=== PATIENT | female | born 1955 | race Caucasian/White ===

== ENCOUNTER 2022-12-26 09:22 | Emergency (ER) | payer MEDICARE, SELFPAY ==
[2022-12-26 09:24] VITALS: BP 195/71; PULSE 83; RESP 18; TEMP 36.5; O2SAT 100; BMI 24.8
--- NOTE | 2022-12-26 09:55 | ED.SKABFB ---
HPI - Skin/Abscess/Foreign Bdy General Chief complaint: Skin/Abscess/Foreign Body Stated complaint: Tick bite Time Seen by Provider: 12/26/22 09:36 Source: patient Mode of arrival: ambulatory Limitations: no limitations History of Present Illness HPI narrative: 67-year-old female previously healthy here with complaints of tick bite to the left axilla for 3 days. Patient reports she attempted to remove the tick by herself but was unable to remove the whole thing. She denies any rash, fevers, chills, headache, neck pain or neck stiffness. She is unsure how long the tick was in place for. Patient report she has a dog and [place] a lot of time in [place]. Related Data Allergies Allergy/AdvReac Type Severity Reaction Status Date / Time codeine [CODEINE] Allergy Unknown RASH Verified 12/26/22 09:27 Penicillins [PENICILLINS] Allergy Unknown RASH Verified 12/26/22 09:27 acetaminophen [From PERCOCET] AdvReac Unknown NAUSEA & Verified 12/26/22 09:27 VOMITING oxycodone [From PERCOCET] AdvReac Unknown NAUSEA & Verified 12/26/22 09:27 VOMITING Review of Systems Review of Systems: Yes all other systems are reviewed and are negative Constitutional: Constitutional: Reports no additional constitutional complaints, Denies body ache(s), Denies chills, Denies fever(s), Denies headache(s) and Denies weakness Eyes: Eyes: Reports no additional eye complaints and Denies change in vision ENT: Reports system reviewed and no additional complaints, except as documented, Denies dizziness, Denies headache(s), Denies nasal congestion, Denies nasal discharge and Denies neck pain Cardiovascular: Cardiovascular: Reports no additional cardiovascular complaints, Denies chest pain, Denies leg edema and Denies dyspnea Respiratory: Respiratory: Reports no additional respiratory complaints, Denies cough and Denies dyspnea Gastrointestinal: Gastrointestinal: Reports no additional gastrointestinal complaints, Denies abdominal pain, Denies diarrhea, Denies nausea and Denies vomiting Genitourinary: Genitourinary: Reports no additional female genitourinary complaints and Denies urinary incontinence Musculoskeletal: Musculoskeletal: Reports no additional musculoskeletal complaints, Denies back pain, Denies arthralgias, Denies joint swelling, Denies neck pain, Denies numbness and Denies tingling Integumentary/Breasts: Skin/Breast: Reports system reviewed and no additional complaints, except as docu and Denies rash Neurologic: Reports system reviewed and no additional complaints, except as documented, Denies Abnormal speech present, Denies dizziness, Denies headache(s), Denies numbness, Denies tingling and Denies weakness PMF Past Medical History Attestation statement: The following information was validated with the patient. Source: old records reviewed and nursing notes reviewed Social History Social History Advance Directives: No Advance Directives Information Provided: No Physical Exam Vital Signs: Vital Signs: Last Vital Signs Temp 97.7 F 12/26/22 09:24 Pulse 83 12/26/22 09:24 Resp 18 12/26/22 09:24 BP 195/71 H 12/26/22 09:24 Pulse Ox 100 12/26/22 09:24 O2 Del Method Room Air 12/26/22 09:24 BMI result Body Mass Index 24.8 Const: General: cooperative, healthy appearing, comfortable and no acute distress Orientation/consciousness: patient oriented x3 Limitations: no limitations HEENT: Head: Yes normal to inspection Ears: hearing grossly normal bilaterally General nose exam: Normal external nose present Face and sinus: Yes normal facial exam Mouth: Normal oral and palatal mucosa present Throat: Yes posterior oropharynx normal Eyes: General: appearance normal, both eyes and all related structures Pupils: Equal, round and reactive pupils present Neck: Neck: Yes normal visual inspection Chest: Chest palpation & inspection: normal inspection of the chest Chest/axillae images: 1. There is a 3cm area of erythema with a central area of scabbing Resp: Effort & Inspection: normal respiratory effort Auscultation: clear to auscultation bilaterally Cardio: Rate: regular rate Rhythm: regular rhythm Peripheral pulses: Peripheral pulses 2+ throughout GI: Inspection: Yes normal to inspection Palpation (GI): Soft to palpation and nontender Auscultation: normal bowel sounds Back/Spine/Pelvis: Thoracic/Lumbar Spine: thoracic and lumbar spine normal to inspection Skin: General skin exam: no rashes or lesions noted Neuro: General: patient oriented x3, no focal motor deficits and normal sensation to monofilament Cranial nerves: Yes Equal, round and reactive pupils present Cognition (Neuro): normal cognition Speech: No Abnormal speech present Gait exam (Neuro): Normal gait present Motor exam (neuro): 5/5 motor strength present throughout Extrem: General: Yes normal to inspection Medications Administered Discontinued Medications Generic Name Dose Route Start Last Admin Trade Name Robel PRN Reason Stop Dose Admin Doxycycline Monohydrate 200 mg 12/26/22 10:17 12/26/22 10:26 Doxycycline Monohydrate 100 Mg Capsule PO 12/26/22 10:18 200 mg ONCE ONE Administration Lidocaine HCl 2 ml 12/26/22 10:00 12/26/22 10:03 Lidocaine Hcl 1 % Mpf 2 Ml Vial INFILTRATI 12/26/22 10:01 2 ml ONCE ONE Administration Lidocaine HCl 2 ml 12/26/22 10:00 12/26/22 10:03 Lidocaine Hcl 1 % Mpf 2 Ml Vial INFILTRATI 12/26/22 10:01 2 ml ONCE ONE Administration Medical Decision Making Medical Decision Making MDM Narrative: 67-year-old female previously healthy here with complaints of tick bite to the left axilla for 3 days. Patient reports she attempted to remove the tick by herself but was unable to remove the whole thing. She denies any rash, fevers, chills, headache, neck pain or neck stiffness. She is unsure how long the tick was in place for. To the left axilla there is a area of erythema with a central area of scabbing. Unable to visualize the wound bed. Will de-roof the scab and explore wound bed. Give one time dose of doxy 200mg PO Differential Diagnosis Differential Diagnoses: The differential diagnosis associated with the presentation includes Tick bite no signs or symptoms concerning for tick-borne illness Admission/Observation Consideration of admission/observation: Escalation of care including admission/observation considered signs or symptoms concerning for tick-borne illness necessitating labs and or admission Tests considered The following testing was considered but not selected: signs or symptoms concerning for tick-borne illness necessitating labs Prescription Management I considered prescription management with: Antibiotic Procedures Procedure Narrative Procedure Narrative: The left axilla was cleansed with betadine 3ml of 1% lidocaine was injected around the site for analgesia The scab was de-roofed with a #15 blade There was debris removed with the scab, ?unsure if remains of tick. The wound bed was explored and cleaned with betadine and topical bacitracin and dressing were applied. Discharge Plan Discharge Clinical Impression: Tick bite with subsequent removal of tick Patient Disposition: Home, Self-Care Instructions: Tick Bite (ED) Additional Instructions: Monitor for bull's-eye rash, fevers, chills, headache, joint pain and return for the symptoms. You did receive a 1 time dose of doxycycline prophylactically for Lyme disease Referrals: Suhas Vegas MD [Primary Care Provider] - 1 week Interventions: ED Discharge Assessment Last Done: 12/26/22 10:28 Discharge Date/Time: 12/26/22 10:41
== END 2022-12-26 10:41 | disposition home or self-care (01) ==
PROVIDERS: Emergency Provider Emergency Medicine; PCP Internal Medicine
DX: S40.862A Insect bite (nonvenomous) of left upper arm, initial encounter (principal); L92.3 Foreign body granuloma of the skin and subcutaneous tissue; W57.XXXA Bitten or stung by nonvenomous insect and other nonvenomous arthropods, initial encounter; Y93.9 Activity, unspecified; Y92.9 Unspecified place or not applicable; Y99.9 Unspecified external cause status
CPT/HCPCS: 10120; 99282; 99284

== ENCOUNTER 2024-03-30 12:31 | Outpatient (AMB) | payer MEDICARE, SELFPAY ==
--- OUTSIDE RECORDS SUMMARY | 2024-03-30 12:34 | XMS_ITS | Continuity of Care Document ---
Author Organization [facility] Address [address] [place] [address]- Care Team Providers Care Senior Information Security Consultant Name Role Phone Shasta BENTLEY, Suhas Curtis Primary Care Physician Encounter [facility] Date(s): 02/23/24 - 03/24/24 [facility] [address] [place] [address]- Encounter Type: Triage Allergies, Adverse Reactions, Alerts Substance Criticality Severity Reaction Reaction Severity Status codeine nausea and vomiting Active penicillin unknown Active Percocet 5/325 N/V Activ e Immunizations Given and Recorded Vaccine Date Status Refusal Reason influenza virus vaccine, inactivated 01/05/24 Osvaldo rded influenza virus vaccine, inactivated 01/03/23 Osvaldo rded influenza virus vaccine, inactivated 12/16/21 Osvaldo rded influenza virus vaccine, inactivated 03/24/21 Gi kenny influenza virus vaccine, inactivated 12/04/18 Give n influenza virus vaccine, inactivated 04/19/18 Give n influenza virus vaccine, inactivated 01/21/17 Give n influenza virus vaccine, inactivated 02/19/13 Give n SARS-CoV-2(COVID-19)mRNA-LNP vac([id number]) 01/05/24 Recorded SARS-CoV-2(COVID-19)mRNA-LNP vac([id number]) 01/03/23 Recorded pneumococcal 20-valent conjugate vaccine 09/14/23 Given zoster vaccine, inactivated 01/03/23 Recorded [id number] bivalent booster vax 12/16/21 Recorded SARS-CoV-2 (COVID-19) mRNA-1273 vaccine 02/26/21 R ecorded SARS-CoV-2 (COVID-19) mRNA-1273 vaccine 07/16/20 R ecorded SARS-CoV-2 (COVID-19) mRNA-1273 vaccine 2 06/13/20 Recorded SARS-CoV-2 (COVID-19) mRNA-1273 vaccine 05/16/20 R ecorded pneumococcal 23-valent vaccine 12/04/18 Given pneumococcal 13-valent vaccine 04/19/18 Given tetanus/diphtheria/pertussis, acel(Tdap) 11/13/14 Given FluLaval (oldterm) 03/09/12 Given FluLaval (oldterm) 12/22/10 Given Influenza Virus Vaccine (oldterm) 01/22/08 Given tetanus-diphtheria toxoids (Td) 3 06/11/07 Given tetanus-diphtheria toxoids (Td) 01/19/97 Given Pneumococcal Vaccine (oldterm) 04/21/00 Given 1Result Comment: [facility]# [address] [phone] 2Result Comment: left deltoid lot [id number] exp 03-20-2069 [facility] 3Admin Note: historical data Medications amLODIPine 5 mg oral tablet 1 tablet, By Mouth, Daily, # 90 tablet, 3 Refills, Maintenance, 12/28/23 12:57:00 PM EDT, [id number], 161, cm, 10/17/23 13:13:00 EDT, Height, 60.2, kg, 07/12/23 7:21:00 EDT, Dry Weight Start Date: 12/28/23 Status: Ordered Quantity: 90.0 Unit: tablet Repeat number: 1 baclofen 5 mg oral tablet 1 tablet = 5 mg, By Mouth, 3 times a day, PRN Pain , Moderate, # 30 tablet, 2 Refills, Maintenance,02/09/23 9:32:00 AM EST, Tablet, [id number], Partial fill upon patient request if the prescription is for a schedule II opioid drug., 161.2, cm, 11/10/22 15:57:00 EDT, Height Start Date: 02/09/23 Status: Ordered Quantity: 30.0 Unit: tablet Repeat number: 3 betamethasone topical dipropionate 0.05% cream 1 application, Topically, Daily, # 15 Gm, 0 Refills, Maintenance, 06/28/23 12:21:00 PM EDT, Cream, Partial fill upon patient request if the prescription is for a schedule II opioid drug. Start Date: 06/28/23 Status: Ordered Quantity: 15.0 Unit: g Repeat number: 1 Colace sodium 100 mg oral capsule 100 mg, 1, capsule, By Mouth, 2 times a day, PRN, Refills 0, Maintenance, as needed for constipation, 07/14/23 8:00:00 AM EDT, Partial fill upon patient request if the prescription is for a schedule II opioid drug. Start Date: 07/14/23 Status: Ordered Repeat number: 1 FLUoxetine 20 mg oral capsule 1, capsule, By Mouth, Daily, # 90 capsule, Refills 3, Maintenance, 12/28/23 12:57:00 PM EDT, Route to Pharmacy Electronically, [id number], 161, cm, 10/17/23 13:13:00 EDT, Height, 60.2, kg, 07/12/23 7:21:00 EDT, Dry Weight Start Date: 12/28/23 Status: Ordered Quantity: 90.0 Unit: capsule Repeat number: 1 Freestyle Lite Lancets See Instructions, # 100 each, Refills 11, Tot. Refills 11, Maintenance, Dm2 E11.9 check blood sugaronce a day, 09/14/23 12:27:00 PM EDT, Supply, 161, cm, 07/14/23 13:01:00 EDT, Height, 60.2, kg, 07/12/23 7:21:00 EDT, Dry Weight Start Date: 09/14/23 Status: Ordered Quantity: 100.0 Unit: each Repeat number: 12 Freestyle Lite Monitor See Instructions, # 1 each, Maintenance, Dm2 E11.9 check blood sugar once a day, 09/14/23 12:26:00 PM EDT, Supply, 161, cm, 07/14/23 13:01:00 EDT, Height, 60.2, kg, 07/12/23 7:21:00 EDT, Dry Weight Start Date: 09/14/23 Status: Ordered Quantity: 1.0 Unit: each Repeat number: 1 Freestyle Lite Test Strips See Instructions, # 100 each, Refills 11, Tot. Refills 11, Maintenance, Dm2 E11.9 check blood sugaronce a day, 09/14/23 12:26:00 PM EDT, Supply, 161, cm, 07/14/23 13:01:00 EDT, Height, 60.2, kg, 07/12/23 7:21:00 EDT, Dry Weight Start Date: 09/14/23 Status: Ordered Quantity: 100.0 Unit: each Repeat number: 12 lisinopril 20 mg oral tablet 1, tablet, By Mouth, Daily, # 90 tablet, Refills 3, Maintenance, 12/28/23 12:57:00 PM EDT, Route to Pharmacy Electronically, [id number], 161, cm, 10/17/23 13:13:00 EDT, Height, 60.2, kg, :21:00 EDT, Dry Weight Start Date: 12/28/23 Status: Ordered Quantity: 90.0 Unit: tablet Repeat number: 1 metFORMIN 1000 mg oral tablet 1 tablet, By Mouth, 2 times a day, # 180 tablet, 3 Refills, 03/02/23 9:31:00 AM EST, [id number], 161.2, cm, 11/10/22 15:57:00 EDT, Height Start Date: 03/02/23 Status: Ordered Quantity: 180.0 Unit: tablet Repeat number: 4 nortriptyline 50 mg oral capsule 1, capsule, By Mouth, Daily, # 90 capsule, Refills 3, Maintenance, 02/23/23 12:51:00 PM EST, Route to Pharmacy Electronically, [id number], 161.2, cm, 11/10/22 15:57:00 EDT, Height Start Date: 02/23/23 Status: Ordered Quantity: 90.0 Unit: capsule Repeat number: 1 rosuvastatin 40 mg oral tablet 1 tablet, By Mouth, Daily, # 90 tablet, 3 Refills, Maintenance, 12/28/23 12:57:00 PM EDT, [id number], 161, cm, 10/17/23 13:13:00 EDT, Height, 60.2, kg, 07/12/23 7:21:00 EDT, Dry Weight Start Date: 12/28/23 Status: Ordered Quantity: 90.0 Unit: tablet Repeat number: 1 Tylenol 325 mg oral tablet 975 mg, By Mouth, Every 8 hours, may take OTC not to exceed 3000 mg/day, Refills 0, Maintenance, 07/14/23 8:00:00 AM EDT, Partial fill upon patient request if the prescription is for a schedule II opioid drug. Start Date: 07/14/23 Status: Ordered Repeat number: 1 valACYclovir 500 mg oral tablet 500 mg, 1, tablet, By Mouth, Daily, Refills 0, Maintenance, 09/14/23 9:28:00 AM EDT, Partial fill upon patient request if the prescription is for a schedule II opioid drug. 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 Family history of colon cancer 3, 4 Confirmed Active Gastroesophageal reflux disease with hiatal hernia Confirmed Active Genital herpes Confirmed Active H/O tubal ligation Confirmed Active H/O: hysterectomy Confirmed Active Bilateral hand pain Confirmed Active History of CEA (carotid endarterectomy) Confirmed Active HTN (hypertension) Confirmed Active Hypercholesterolemia Confirmed Active Lacunar infarction Confirmed Active Low back pain Confirmed Active Microcalcification of left breast on mammogram Confirmed Active Depression, major, single episode, moderate Confirmed Active Neck pain Confirmed Active Osteoarthritis of both hands Confirmed Active Radial scar of left breast Confirmed Active 1ct chest 2008 no change nodule thus no need f/u 2lung nodule by ct 09/22 3Colonoscopy 2013 normal except for non-precancerous polyp, repeat 2023. 4colo 04 normal, repeat 09 needed Social History Social History Type Response Smoking Status Never smoker entered on: 07/21/15 Sex Sex Representation Female (finding) Implantable Device List Procedure Provider Procedure Date Device Type Site Discectomy and Fusion Anterior Cervical Aquiles Stinson MD 07/12/23 Unknown Cervical Spine Device Identifier Serial Number Lot or Batch Number Manufacturing Date Expiration Date Distinct Identification Code MRI Safety Implantable Status Assigning Authority Unknown [id number] Unknown 10/16/23 Unknown Unknown Active Unkn own Procedure Provider Procedure Date Device Type Site Discectomy and Fusion Anterior Cervical Aquiles Stinson MD 07/12/23 Unknown Cervical Spine Device Identifier Serial Number Lot or Batch Number Manufacturing Date Expiration Date Distinct Identification Code MRI Safety Implantable Status Assigning Authority Unknown [id number] Unknown Unknown 01/15/25 Unknown Unknown Active Unknown Patient Care team information Care Team Personnel Name: Radha Moreau RN Position: [facility] [place] Office Staff Member Role: Primary Care Nurse Name: Suhas Vegas MD Position: [facility] Physician - Primary Care Member Role: PCP Address: [address] [place] [id number] Telecom: Name: Deb Nash RN Position: [facility] RN Member Role: Primary Care Nurse Name: Kacie Guzman LPN Position: [facility] RN Member Role: Primary Care Nurse Care Team Related Persons Name: HERMANN CAREY Name: NORBERT HOPPER Name: LAMIN DOWNS Insurance Providers Guarantor name: AC HOPPER Health Plan Information #: 1 Payer: MEDICARE PART B OUTPT Member Number: NA Policy Number: NA Group Number: NA Health Plan Information #: 2 Payer: MEDEX Member Number: NA Policy Number: NA Group Number: NA
--- NOTE | 2024-03-30 12:39 | MHC.OFFWIV ---
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 Patient Tobacco Use Status: Never used Tobacco Allergies codeine [CODEINE] Allergy (Unknown, Verified 03/30/24 12:50) RASH Penicillins [PENICILLINS] Allergy (Unknown, Verified 03/30/24 12:50) RASH acetaminophen [From PERCOCET] Adverse Reaction (Unknown, Verified 03/30/24 12:50) NAUSEA & VOMITING oxycodone [From PERCOCET] Adverse Reaction (Unknown, Verified 03/30/24 12:50) NAUSEA & VOMITING Do you need a note to return to daycare/school/sports/work: No HPI HPI Comments History of Present Illness Details History of Present Illness - The patient is a 69-year-old female presenting with a superficial laceration on her right pointer finger. - Injury sustained this morning around 6:30 a.m while opening a can of dog food., treated by rinsing with warm water, application of hydrogen peroxide and salve, followed by bandaging. - Bleeding stopped post self-treatment; no history of anticoagulant use. - Tetanus prophylaxis updated today during a primary care appointment. Physical Exam General: Cooperative, healthy appearing, comfortable, no acute distress and well developed Orientation: Patient oriented x3 Limitations: No limitations Head: Normal to inspection Ears: Hearing grossly normal bilaterally Nose: Normal external nose present Face and sinus: Normal facial exam Eyes: Appearance normal, both eyes and all related structures Neck: Normal visual inspection and Yes full ROM Respiratory: Normal respiratory effort and able to speak in complete sentences. Skin: No rashes or lesions noted Neuro: Patient oriented x3 Extremities: right 2nd digit has superficial 1cm linear laceration to palmar aspect of PIP, no drainage, no bleeding, no erythema or signs of infection noted. [facility] Social History Patient Tobacco Use Status: Never used Tobacco Review of Systems Const All systems reviewed & are unremarkable except as noted in HPI and below Physical Exam Vital Signs: Last Vital Signs Pulse 106 H 03/30/24 12:40 BP 118/72 03/30/24 12:40 Pulse Ox 98 03/30/24 12:40 Oxygen Delivery Method Room Air 03/30/24 12:40 Office Procedures Laceration Repair Procedure Location: cleaned wound with iodine, applied 2 steri-strips Text: After discussion of risk and benefits, verbal informed consent was obtained. The area was cleaned, prepped, and draped using sterile technique. The wound was debrided of any foreign material or devitalized tissue. Wound edges were approximated and closed using 2 steri strips Standard wound dressing was applied. Wound care instructions were given [X]. The patient tolerated the procedure well. The patient was instructed to return for increased redness or red streaking, pain, swelling, pus, fevers, chills, or any other signs or symptoms of infection or worsening. DAC Assessment & Plan Assessment & Plan (1) Laceration of finger of right hand: Code(s): S61.219A - Laceration without foreign body of unspecified finger without damage to nail, initial encounter Qualifiers: Encounter type: initial encounter Finger: index finger Damage to nail status: without damage Foreign body presence: without foreign body Qualified Code(s): S61.210A - Laceration without foreign body of right index finger without damage to nail, initial encounter Plan: Wound cleaned, 2 steri-strips applied and covered with gauze. Wound care instructions given. Tetantus given earlier today by PCP per pt. Patient was informed and verbally consented to the use of an ambient scribe for clinic note documentation during this visit. Orders: Orders AMB Laceration Repair Today S61.210A - Laceration without foreign body of right index finger without damage to nail, initial encounter Coding Level of Care Code New Pt Level 4 (54766) Diagnoses Laceration of right index finger without foreign body without damage to nail, initial encounter S61.210A Encounter type: initial encounter Finger: index finger Damage to nail status: without damage Foreign body presence: without foreign body
[2024-03-30 12:40] VITALS: BP 118/72; PULSE 106; O2SAT 98
== END 2024-03-30 14:44 | disposition home or self-care (01) ==
PROVIDERS: PCP Internal Medicine; Visit Provider Physician Assistant
DX: S61.210A Laceration without foreign body of right index finger without damage to nail, initial encounter (principal)

== ENCOUNTER → 2024-03-30 12:31 | Outpatient (BNVA) | payer MEDICARE, SELFPAY | PROVIDERS: PCP Internal Medicine; Visit Provider Physician Assistant | DX: S61.210A Laceration without foreign body of right index finger without damage to nail, initial encounter (principal); W26.8XXA Contact with other sharp object(s), not elsewhere classified, initial encounter; Y93.9 Activity, unspecified; Y92.9 Unspecified place or not applicable; Y99.9 Unspecified external cause status | CPT/HCPCS: 97597; 99202 ==

== ENCOUNTER 2025-01-03 07:22 | Outpatient (AMB) | payer MEDICARE, SELFPAY ==
--- NOTE | 2025-01-03 07:23 | AM.OFFWIN_ITS ---
Intake Vital Signs 3 01/03/25 07:25 Height 5 ft 3 in Weight 112 lb BMI 19.8 BP 120/82 Blood Pressure Location Rt brachial Position Sitting Respiration 16 Pulse 89 Pulse Source Pulse Oximeter Temp 97.9 F Temp Source Oral Pulse Oximetry (%) 100 Oxygen Delivery Method Room Air Intake Visit Reasons: ep bit by a tick Intake Note: Pt is here today c/o tick bite Lt upper inner arm: Noticed 2 days ago Patient Tobacco Use Status: Never used Tobacco Allergies codeine (CODEINE) Allergy (Unknown, Verified 01/03/25 07:23) RASH Penicillins (PENICILLINS) Allergy (Unknown, Verified 01/03/25 07:23) RASH acetaminophen (From PERCOCET) Adverse Reaction (Unknown, Verified 01/03/25 07:23) NAUSEA & VOMITING oxycodone (From PERCOCET) Adverse Reaction (Unknown, Verified 01/03/25 07:23) NAUSEA & VOMITING HPI HPI Comments 2 History of Present Illness0 Details 69 y/o Female patient who [facility] with c/o Tick Bite left Upper Arm (Bicep region). She noticed the Tick 2 days ago - she did remove the whole Tick with no difficulty. Denies Fevers, chills, Nausea, vomiting, Headaches, Neck stiffiness, body aches and Generalized Malaise. [facility] Medical History (Updated 01/03/25 @ 07:36 by Charley Santso NP) Tick bite Social History Patient Tobacco Use Status: Never used Tobacco Review of Systems Const All systems reviewed & are unremarkable except as noted in HPI and below Physical Exam Vital Signs: Last Vital Signs Temp 97.9 F 01/03/25 07:25 Pulse 89 01/03/25 07:25 Resp 16 01/03/25 07:25 BP 120/82 01/03/25 07:25 Pulse Ox 100 01/03/25 07:25 Oxygen Delivery Method Room Air 01/03/25 07:25 BMI result Body Mass Index 19.8 Const General: no acute distress Nutritional Appearance: well nourished Orientation/consciousness: patient oriented x3 Chest Chest/axillae images: 2 1. There is a 1.5 cm area of erythema with a central area of scabbing Resp Effort & Inspection: normal respiratory effort Cardio Rhythm: regular rhythm Neuro General: patient oriented x3, gait normal and moves all extremities Psych Speech and movement: Normal speech and movement present Assessment & Plan Assessment & Plan (1) Tick bite: Code(s): W57.XXXA - Bitten or stung by nonvenomous insect and other nonvenomous arthropods, initial encounter Qualifiers: Encounter type: initial encounter Laterality: left Site of tick bite: upper arm Qualified Code(s): S40.862A - Insect bite (nonvenomous) of left upper arm, initial encounter; W57.XXXA - Bitten or stung by nonvenomous insect and other nonvenomous arthropods, initial encounter Plan: There is a 1.5 cm area of erythema with a central area of scabbing. Ordered 1 dose of Doxy 200 mg for Proph RTC if Develops Rash, Fevers, chills or body aches. Medications: New 2 doxycycline hyclate 100 mg PO BID 2 caps 0RF W57.XXXA - Bitten or stung by nonvenomous insect and other nonvenomous arthropods, initial encounter Coding Level of Care Code Est Pt Level 4 (63655) Diagnoses Tick bite of left upper arm, initial encounter S40.862A; W57.XXXA Encounter type: initial encounter Laterality: left Site of tick bite: upper arm Time Spent (min) 20
--- OUTSIDE RECORDS SUMMARY | 2025-01-03 07:24 | XMS_ITS | Data Portability ---
Author Organization MIGUEL ANGEL - Nicolas Nick Ohkirsten [facility], [facility] Address [address] [place] [address] Care Team Providers Care Foam Fabricator Name Role Phone IDA REYNA Primary Care Provider Assessment No assessment recorded. Plan of Treatment Reminders Order Date Submit Date Provider Last Modified By Organization Details Last Modified Time Details Appointments None recorded. Lab None recorded. Referral physical therapist referral - DX: Lumbar radiculopat hy lumbar/core pelvic stabilizati on 2024 025 [email or web address] [facility] - [place] - [facility] , [address] [facility] , [address], [place], [address], 5 08:18:45 Procedures None recorded. Surgeries None recorded. Imaging XR, finger(s), 2 or more view - RM 113 2V R TMJ 2024 025 [email or web address] [facility], [address], [facility] [address], [place], [address], 5 11:44:00 XR, lumbar spine, 2 view - rm 306 2v l-spine 2024 025 [email or web address] [facility], [address], [address], [place], [address], 5 10:40:06 MRI, lumbar spine, w/o contrast - eval compression fx 2024 025 [facility] ([facility]), [address], [place], [address], 5 10:40:07 barium swallow study - BARRIUM SWALLOW TEST EVAL FOR DIFFICULTY SWALLOWING 2023 024 [facility], [address], [address], [place], [address], 4 20:59:46 XR, cervical spine, 2 or 3 view - rm 306 2 views of C-spine. 2023 024 [facility], [address], [address], [place], [address], 4 20:59:46 Medication Orders cyclobenzap rine 5 mg tablet [address]/Pharmacy #[id number], [address] [place], [address], 5 11:16:09 tramadol 50 mg tablet 2024 025 [facility]/Pharmacy #[id number], [address] [place], [address], 5 14:04:25 cyclobenzap rine 5 mg tablet 2023 024 [facility]/Pharmacy #[id number], [address] [place], [address], 4 12:54:45 Patient TargetsNo targets recorded. Patient InstructionsNo instructions recorded. Reason for Referral Physical Therapist Referral for Lumbar radiculopathy DX: Lumbar radiculopathy lumbar/core pelvic stabilization Referring Physician: Oscar Hansen, Orthopedic Surgery, Encounter Date: 07/16/2024 Results Created Date Observation Date Name Description Value Unit Range Abnormal Flag Note LastModifiedBy Organization Detail LastModifiedTime 01/04/20 24 01/04/2024 XR, cervi devin spine , 2 or 3 view http:/ [email or web address] ?Encry pted=s hAaTro YD8dLq bEUv6g %2BXZw aYqtaq 0bqfl% 2Fg9IQ a4ajBk vP9nXo QUaueC m3YtLR FvZlgJ JJ8[place] HZtai3 3t2061 AC0Kqa 3qFVKq iKiQtr MwF INTERFACE [facility] [address] [facility] [address], [place], [address], 01/04/2024 09:31:40 01/04/20 24 01/04/2024 XR, cervi devin spine , 2 or 3 view http:/ [email or web address] ?Encry pted=s hAaTro YD8dLq bEUv6g %2BXZw aYqtaq 0bqfl% 2Fg9IQ a4ajBk vP9nXo QUaueC m3YtLR FvZl JJ8[place] HZtai3 2b7241 AC0Kqa 3qFVKq iKiQtr MwF INTERFACE [facility] [address] [facility] [address], [place], [address], 01/04/2024 09:31:42 06/27/19 25 06/26/2024 XR, lumba r spine , 2 view http:/ [email or web address] ?Encry pted=s hAaTro YD8dLq bEUv6g %2BXZw aYqtaq 0bqfl% 2Fg9IQ a4ajBk vP9nXo QUaueC m3YtLR FvZlg JJ8[place] HZtai3 6z1068 AC0KqY 36AWaK jKiQtr MwF INTERFACE [facility] [address] [facility], [place], [address], 06/26/2024 10:55:51 06/27/19 25 06/26/2024 XR, lumba r spine , 2 view http:/ [email or web address] ?Encry pted=s hAaTro YD8dLq bEUv6g %2BXZw aYqtaq 0bqfl% 2Fg9IQ a4ajBk vP9nXo QUaueC m3YtLR FvZlgJ JJ8mAn HZtai3 4m0388 AC0KqY 36AWaK jKiQtr MwF INTERFACE [facility] [address], [place], [address], 06/26/2024 10:55:53 07/05/19 25 06/30/2024 MRI, lumba r spine , w/o contr ast [facility] Access ion Number : [id number] Patien t Name: Dinah Luna Record Number : [id number] Date of : 1955 Date of Exam: 2024 Referr ing Physic javier: Oscar [facility]jias i [facility] [address] [facility], [place] [facility] [place] [address] Exam: MR Lumbar Spine (C-) CPT 21677 Room Descri ption: [facility] Pion 3T MR Lumbar Spine (C-) CPT 18649 INDICA TION: - Unspec ified injury to unspec ified level of lumbar spinal cord, initia l encoun ter, , eval compre ssion fx, Rule Out: compre ssion fx TECHNI QUE: Multip lanar, multis equenc e MRI of the lumbar spine was perfor med withou t intrav enous contra st. COMPAR CROW: None. FINDIN GS: NUMBER ING: The study assume s 5 non-ri b-bear ing lumbar type verteb ral bodies . ALIGNM ENT, VERTEB MARIA DEL CARMEN, MARROW , AND DISCS: Mild rightw hermelinda curvat ure is noted at the thorac olumba r juncti on, and levoco nvex curvat ure in the mid lumbar spine. The sagitt al plane, there is minima l retrol isthes is of T12 on L1 and L1 on L2, and grade 1 maxine listhe sis of L4 on L5 and L5 on S1 withou t spondy lolysi s. There is mild superi or endpla te concav ity of L4 on the left associ ated with a Schmor l's node, with no associ ated edema. Verteb ral body height s are preser armida. Modic 1 degene rative endpla te change s are presen t at T12-L1 . Modic 2 change s are presen t at L3-4. There is edema in the partia lly visual ized left sacrum , with probab le nondis placed T1/T2 hypoin tense curvil inear fractu re line extend ing throug h the left sacrum , sugges ting sacral insuff icienc y fractu re. No suspic ious marrow lesion s are seen. Interv ertebr al discs are diffus ed desicc ated with severe loss of disc space at T12-L1 and multil evel mild to modera te loss of disc height at the remain ing levels . CONUS: The conus is normal in signal and contou r, with border line low termin ation at L2-3. There is no fatty filum or filar mass. [employer] ior elemen ts are intact . PARASP INAL TISSUE S: There is fatty atroph y of the physical fitness trainer ior parasp inal muscul ature. Remain ing visual ized parasp inal soft tissue s are unrema rkable . DETAIL ED FINDIN GS BY LEVEL: T11-T1 2: Mild broad- based disc osteop hyte comple x and mild facet spurri ng. No signif icant centra l stenos is or neural forami nal narrow ing. T12-L1 : Broad- based disc osteop hyte comple x, slight ly eccent zoie to the left, with no signif icant centra l stenos is or neural forami nal narrow ing. L1-L2: Minima l physical fitness trainer ior disc osteop hyte comple x with shallo w left parace ntral protru devonte and mild facet spurri ng, with no signif icant centra l stenos is or neural forami nal narrow ing. L2-L3: Broad- based disc osteop hyte comple x with right greate r than left facet hypert rophy. Minima l narrow ing of the right subart icular recess but no nerve root compre ssion. Otherw ise no signif icant centra l stenos is. Minima l right and no left neural forami nal narrow ing. L3-L4: Broad- based disc osteop hyte comple x with bilate ral facet hypert rophy and ligame ntum flavum infold ing, greate r right. Minima l narrow ing of the right subart icular recess but no nerve root compre ssion. Otherw ise no signif icant centra l stenos is. Mild to modera te right and minima l left neural forami nal narrow ing. L4-L5: Grade 1 maxine listhe sis with uncove ring of the disc and broad- based disc bulge as well as promin ent bilate ral facet hypert rophy and ligame ntum flavum infold ing. Modera te centra l stenos is. Mild bilate ral neural forami nal narrow ing. L5-S1: Mild broad- based disc bulge. Bilate ral facet hypert rophy. No signif icant centra l stenos is. Minima l right and modera te left neural forami nal narrow ing. IMPRES DEVONTE: 1. Acute to subacu te left sacral insuff icienc y fractu re with associ ated edema, partia lly visual ized. No eviden ce of acute/ subacu te lumbar fractu re. 2. Multil evel degene rative change s of the lumbar spine as detail ed by level above. Centra l stenos is is greate st at L4-5 (moder ate). Neural forami nal narrow ing is greate st on the left at L5-S1 (moder ate). A Non-Em ergent action able findin g will be commun icated to the [facility] ([place] [place]) physic javier, other respon sib provid er, or the [facility]'s office staff by the medica l record s depart ment. Receip t of this commun icatio n by the respon Radico or orderCall Loop [facility] will be docume nted in [facility] onnect Action able Findin gs. Electr onical ly Signed By: Rhonda barrera[address] [facility] ([facility]) [address], [place], [address], 07/09/2024 08:21:28 07/05/19 25 06/30/2024 MRI, lumba r spine , w/o contr ast No observ ation record ed. [facility] ([facility]) [address] [place], [address], 07/09/2024 08:21:25 10/12/19 25 10/11/2024 XR, finge r(s), 2 or more view http:/ [email or web address] ?Encry pted=s hAaTro YD8dLq bEUv6g %2BXZw aYqtaq 0bqfl% 2Fg9IQ a4ajBk vP9nXo QUaueC m3YtLR FvZlgJ JJ8mAn HZtai3 0a9959 AC0Klb nyGV6K jKiQtr MwF [facility] [address], [place], [address], 10/11/2024 09:21:48 10/12/19 25 10/11/2024 XR, finge r(s), 2 or more view http:/ [email or web address] ?Encry pted=s hAaTro YD8dLq bEUv6g %2BXZw aYqtaq 0bqfl% 2Fg9IQ a4ajBk vP9nXo QUaueC m3YtLR FvZlgJ JJ8mAn HZtai3 2b7713 AC0Klb nyGV6K jKiQtr MwF INTERFACE [facility] [address] [facility] [address], [place], [address], 10/11/2024 09:21:49 Result Notes Documentation Provider Name and Address Organization Details Recorded Time Xr, Cervical Spine, 2 Or 3 View : [email or web address] ncrypted=jeNvGfeEH2lPouBPm 6g%7CTNihPvhtj9lsxn%2Fg9IQ p7udHqoX2eAoVLmgjBz9NzLXQz WgeSTC1mVwPMydk66r6010SK8J qg9qMIMarKwTpdFmS Not Available [facility] 01/04/20[facility] 09:31:41 Xr, Cervical Spine, 2 Or 3 View : [email or web address] ncrypted=scQbVwfME3eNbhLGj 6g%4ZONiaMlpiq0cdve%2Fg9IQ v1vdYfaB0qKnHNyryFm9CjDMMm LmvISY0xHtVMbwm03b7059CM0B hv4xODQwzIiJwcLgA Not Available [facility] 01/04/2024 09:31:43 Xr, Lumbar Spine, 2 View : [email or web address] ncrypted=xbOxBzpDK3wDgqYKn 6g%3VSLliVfolb4gtdt%2Fg9IQ n6dkChiV8yWxFXvdsJj8TkLLJz XgjYEY3oDhQOzrw59c2582PN4A xA23ROuKeXwDrwUpV Not Available [facility] 06/26/2024 10:55:52 Xr, Lumbar Spine, 2 View : [email or web address] ncrypted=ueLeVvqIH7wSkaIVl 6g%6DADpsHooqr2lgeo%2Fg9IQ u1tcIfvQ1dKbPSrqaWw4LiDMGq JyuIUU3gToGMjxc45t9538YV0K lQ90ESnJpXlJqgDkB Not Available [facility] 06/26/2024 10:55:54 Mri, Lumbar Spine, W/o Contrast : [facility] Accession Number: [id number] Patient Name: Dinah Luna Date of : 1955 Date of Exam: 06-30-2024 Referring Physician: Oscar Hansen [facility] [address] [place], [place] [address] Exam: MR Lumbar Spine (C-) CPT 64172 Room Description: [facility] 3T MR Lumbar Spine (C-) CPT 54761 INDICATION: - Unspecified injury to unspecified level of lumbar spinal cord, initial encounter, , eval compression fx, Rule Out: compression fx TECHNIQUE: Multiplanar, multisequence MRI of the lumbar spine was performed without intravenous contrast. COMPARISON: None. FINDINGS: NUMBERING: The study assumes 5 qxc-lqr-mvzicrp lumbar type vertebral bodies. ALIGNMENT, VERTEBRAE, MARROW, AND DISCS: Mild rightward curvature is noted at the thoracolumbar junction, and levoconvex curvature in the mid lumbar spine. The sagittal plane, there is minimal retrolisthesis of T12 on L1 and L1 on L2, and grade 1 anterolisthesis of L4 on L5 and L5 on S1 without spondylolysis. There is mild superior endplate concavity of L4 on the left associated with a Schmorl's node, with no associated edema. Vertebral body heights are preserved. Modic 1 degenerative endplate changes are present at T12-L1. Modic 2 changes are present at L3-4. There is edema in the partially visualized left sacrum, with probable nondisplaced T1/T2 hypointense curvilinear fracture line extending through the left sacrum, suggesting sacral insufficiency fracture. No suspicious marrow lesions are seen. Intervertebral discs are diffusely desiccated with severe loss of disc space at T12-L1 and multilevel mild to moderate loss of disc height at the remaining levels. CONUS: The conus is normal in signal and contour, with borderline low termination at L2-3. There is no fatty filum or filar mass. Posterior elements are intact. PARASPINAL TISSUES: There is fatty atrophy of the posterior paraspinal musculature. Remaining visualized paraspinal soft tissues are unremarkable. DETAILED FINDINGS BY LEVEL: T11-T12: Mild broad-based disc osteophyte complex and mild facet spurring. No significant central stenosis or neural foraminal narrowing. T12-L1: Broad-based disc osteophyte complex, slightly eccentric to the left, with no significant central stenosis or neural foraminal narrowing. L1-L2: Minimal posterior disc osteophyte complex with shallow left paracentral protrusion and mild facet spurring, with no significant central stenosis or neural foraminal narrowing. L2-L3: Broad-based disc osteophyte complex with right greater than left facet hypertrophy. Minimal narrowing of the right subarticular recess but no nerve root compression. Otherwise no significant central stenosis. Minimal right and no left neural foraminal narrowing. L3-L4: Broad-based disc osteophyte complex with bilateral facet hypertrophy and ligamentum flavum infolding, greater right. Minimal narrowing of the right subarticular recess but no nerve root compression. Otherwise no significant central stenosis. Mild to moderate right and minimal left neural foraminal narrowing. L4-L5: Grade 1 anterolisthesis with uncovering of the disc and broad-based disc bulge as well as prominent bilateral facet hypertrophy and ligamentum flavum infolding. Moderate central stenosis. Mild bilateral neural foraminal narrowing. L5-S1: Mild broad-based disc bulge. Bilateral facet hypertrophy. No significant central stenosis. Minimal right and moderate left neural foraminal narrowing. IMPRESSION: 1. Acute to subacute left sacral insufficiency fracture with associated edema, partially visualized. No evidence of acute/subacute lumbar fracture. 2. Multilevel degenerative changes of the lumbar spine as detailed by level above. Central stenosis is greatest at L4-5 (moderate). Neural foraminal narrowing is greatest on the left at L5-S1 (moderate). A Non-Emergent actionable finding will be communicated to the ordering physician, other responsible provider, or the provider's office staff by the medical records department. Receipt of this communication by the responsible or ordering provider will be documented in [employer] Actionable Findings. Electronically Signed By: Asya HANSEN PA-C [address] [facility] [address], [place], [address], [facility] 07/09/2024 08:21:28 Xr, Finger(s), 2 Or More View : [email or web address] ncrypted=soXdAgpED8eOyfLKm 6g%3OAZutRaohu9stqq%2Fg9IQ k2pbJizX4nYrCQjsnFp5GnGKDn UmpBUP1dClWNfdv93u5335DB7X rivdAB3WyAnJldRjU Not Available [facility] 10/11/2024 09:21:48 Xr, Finger(s), 2 Or More View : [email or web address] ncrypted=yuLrTnbGN8tMhsQAf 6g%4SZPmnBicfz2mspq%2Fg9IQ p0jcJqzM4qLnYGtxnYe6QhBOIm AoxPTT9bZbNSajw71z1163US3M wyctHT4EqXnNwpVbP Not Available [facility] 10/11/2024 09:21:50 Problems Name Problem SNOMED Code Status Onset Date Resolution Date Notes Provider Name and Address Organization Details Recorded Time Spinal stenosis in cervical region 68517927 Active 2023 Aquiles Stinson MD [address], [place], [address], [facility] 13:12:34 Radiculopathy due to cervical spondylosis 4161713296 Active 2023 Aquiles Stinson MD [address], [facility] [place], [address], [facility] 13:12:35 Cervical disc disorder with radiculopathy 253073462 Active 2023 Aquiles Stinson MD [address], [facility] [place], [address], [facility] 13:12:36 Problem Notes None recorded. Procedures Surgical History Date Name Laterality Status Provider Name and Address Organization Details Recorded Time 10/12/19 25 JZCMC Inj completed Louise Disla PA-C [address] [facility], [place], [address], [facility] 10/11/2024 10:25:54 carotid endarterectomy completed Aquiles Stinson MD [address] [facility], [place], [address], [facility] 06/27/2023 13:09:44 Imaging Results None recorded. Procedure Notes None recorded. Medical Equipment None Reported. Allergies Allergen ID Allergen Name Allergen Category Reaction Reaction Severity Criticality Documentation Date Start Date Code Code System Note Provider Name and Address Organization Details Recorded Time 57113 Product containin g penicilli n (product) medicatio n Not available Not available Not available 05/23/20232001 30062 8001 SNOMED Aller gyRea ction : 'NO SYMPT OM SPECI FIED' ; Not Available [facility] 15:13:07 80901 acetamino phen / hydrocodo ne medicatio n Not available Not available Not available 05/23/20232005 50362 2 RxNorm Aller gyRea ction : 'Naus ea/Vo mitin g/Adelia rrhea '; Not Available [facility] 4 15:13:07 47089 acetamino phen / oxycodone medicatio n Not available Not available Not available 05/23/20232005 38117 3 RxNorm Aller gyRea ction : 'Naus ea/Vo mitin g/Adelia rrhea '; Not Available [facility] 4 15:13:07 73809 codeine medicatio n Not available Not available Not available 05/23/20232001 2670 RxNorm Aller gyNam e: 'Code ine and Relat ed'; Aller gyRea ction : 'Naus ea/Vo mitin g/Adelia rrhea '; Not Available [facility] 4 15:13:08 Medications Name Sig Start Date Stop Date Status Note LastModified by Organization Details LastModified Time celecoxib 200 mg capsule TAKE 1 CAPSULE BY MOUTH EVERY DAY FOR 30 DAYS 08/22 completed Not Available Not Available Not Available tizanidine 4 mg tablet TAKE 1 TABLET BY MOUTH EVERY 8 HOURS NEEDED FOR 5 DAYS active Not Available Not Available No t Available atenolol 100 mg tablet TAKE 1 TABLET BY MOUTH EVERY DAY active Not Available Not Available No t Available valacyclovi r 1 gram tablet TAKE 1 TABLET BY MOUTH EVERY 12 HOURS FOR 10 DAYS 08/22 completed Not Available Not Available Not Available meloxicam 15 mg tablet TAKE 1 TABLET BY MOUTH EVERY DAY active Not Available Not Available No t Available FreeStyle Lancets 28 gauge DM2 E11.9 CHECK BLOOD SUGAR ONCE A DAY active Not Available Not Available No t Available lisinopril 20 mg tablet TAKE 1 TABLET BY MOUTH EVERY DAY active Not Available Not Available No t Available ondansetron HCl 4 mg tablet TAKE 1 TABLET BY MOUTH EVERY 8 HOURS NEEDED FOR NAUSEA AND VOMITING 08/22 completed Not Available Not Available Not Available amlodipine 5 mg tablet TAKE 1 TABLET BY MOUTH EVERY DAY active Not Available Not Available No t Available valacyclovi r 500 mg tablet TAKE 1 TABLET BY MOUTH EVERY DAY active Not Available Not Available No t Available tramadol 50 mg tablet TAKE 1 TABLET EVERY 8 HOURS BY ORAL ROUTE NEEDED FOR 7 DAYS, FOR SEVERE PAIN. active Not Available Not Available No t Available pseudoephed rine-guaife nesin ER 80-700 mg tablet,exte nded release DO NOT DRIVE WHILE ON THIS MEDICATIO N 04/27 completed Statu s: 'Disc ontin ued'; Not Available Not Available Not Available metformin 1,000 mg tablet TAKE 1 TABLET BY MOUTH TWICE A DAY FOR 30 DAYS active Not Available Not Available No t Available betamethaso ne dipropionat e 0.05 % topical cream APPLY SPARINGLY TO AFFECTED AREA EVERY DAY active Not Available Not Available No t Available methylpredn isolone 4 mg tablets in a dose pack TAKE 6 TABLETS ON DAY 1 DIRECTED ON PACKAGE AND DECREASE BY 1 TAB EACH DAY FOR A TOTAL OF 6 DAYS 08/22 completed Not Available Not Available Not Available celecoxib 100 mg capsule TAKE 1 CAPSULE BY MOUTH TWICE A DAY active Not Available Not Available No t Available fluoxetine 20 mg capsule TAKE 1 CAPSULE BY MOUTH EVERY DAY active Not Available Not Available No t Available nortriptyli ne 50 mg capsule TAKE 1 CAPSULE BY MOUTH EVERY DAY active Not Available Not Available No t Available oxycodone 5 mg tablet TAKE 1 TABLET BY MOUTH EVERY 4 HOURS NEEDED FOR 14 DAYS. 08/22 completed Not Available Not Available Not Available cyclobenzap rine 5 mg tablet TAKE 1 TABLET NEEDED BY ORAL ROUTE AT BEDTIME FOR 30 DAYS, FOR MUSCLE SPASMS. active Not Available Not Available No t Available rosuvastati n 40 mg tablet TAKE 1 TABLET BY MOUTH EVERY DAY active Not Available Not Available No t Available betamethaso ne dipropionat e Betametha sone Dipropion ate 0.05% Cream 02/21 completed Statu s: 'Disc ontin ued'; Not Available Not Available Not Available FreeStyle Lite Strips DM2 E11.9 CHECK BLOOD SUGAR ONCE A DAY active Not Available Not Available No t Available FreeStyle Osage Lite kit DM2 E11.9 CHECK BLOOD SUGAR ONCE A DAY active Not Available Not Available No t Available GaviLyte-G 236 gram-22.74 gram-6.74 gram-5.86 gram oral solution PLEASE SEE ATTACHED FOR DETAILED DIRECTION S active Not Available Not Available No t Available Yuvafem 10 mcg vaginal tablet INSERT 1 TABLET VAGINALLY TWICE WEEKLY active Not Available Not Available No t Available Yuvafem Yuvafem 10MCG Tablet 02/21 completed Statu s: 'Disc ontin ued'; Not Available Not Available Not Available baclofen 5 mg tablet TAKE 1 TABLET BY MOUTH 3 TIMES A DAY NEEDED FOR MODERATE PAIN active Not Available Not Available No t Available Vitals Date Recorded Body height Body mass index (BMI) Body weight Provider Name and Address Organization Details Last Updated DateTime 06/26/2024 160.02 cm 19.7 kg/m2 35277.75 g GABRIEL LIZ [facility] 06/26/2024 10:49:01 Date Recorded Body height Body mass index (BMI) Body weight Provider Name and Address Organization Details Last Updated DateTime 07/16/2024 160.02 cm 19.7 kg/m2 00058.75 g Pauline Lopez [facility] 07/16/2024 15:05:27 Date Recorded Body height Body mass index (BMI) Body weight Provider Name and Address Organization Details Last Updated DateTime 09/13/2024 160.02 cm 19.7 kg/m2 59512.75 g Brunilda pemberton [facility] 09/13/2024 09:28:06 Date Recorded Body height Body mass index (BMI) Body weight Provider Name and Address Organization Details Last Updated DateTime 10/11/2024 160.02 cm 20.4 kg/m2 78741.12 g GABRIEL LIZ [facility] 10/11/2024 09:16:20 Date Recorded Body height Provider Name an d Address Organization Details Last Updated DateTime 01/04/2024 160.02 cm Loree Alvares, CLEANER OPERATOR [address] [facility] [address], [place], [address], [facility] 01/04/2024 09:22:15 Social History Question Answer Notes LastModified by Organizat ion Details LastModified Time Tobacco Smoking Status Never Smoker VIRY ríos, [facility] 08/23/2023 13:03:47 Have You Ever Been Counseled For Unhealthy Alcohol Use? No tereso Information not available 08/23/2023 Sex: Unknown Functional Status Question Answer Note LastModified by Organizat ion Details LastModified Time Do you use any illicit or recreational drugs? No [email or web address] Information not available 06/27/2023 Do you or have you ever used any other forms of tobacco or nicotine? No Information not available 06/27/2023 What is your level of alcohol consumption? Occasional [email or web address] Information not available 06/27/2023 Are you able to care for yourself independently? Yes [email or web address] Information not available 06/27/2023 Mental Status None recorded. Family History Nothing Reported. Medical History Condition Response Allergies/Hayfever N Coronary Artery Disease N Anxiety/Depression N Emphysema N Thyroid Problems Y COPD N Pacemaker N Anemia N Kidney/Bladder Problems N Vascular Disease N Heart Attack (NC) N Gastrointestinal Disease N Diabetes Y Autoimmune disease N Bleeding Disorder N Orthotics N Arthritis Y Seizures/Epilepsy N Blood Clot N AIDS/HIV N Congestive Heart Failure (CHF) N Acid Reflux (GERD) N Cancer N Stroke N Asthma N Peripheral Vascular Disease N Sleep Apnea N Hepatitis N Heart Disease N Rheumatoid Arthritis N Arrhythmia N Pulmonary Embolism N Fibromyalgia N Hypertension Y Osteoporosis N Gynecological HistoryNo gynecological history recorded. Obstetrics History GPAL:G 0 P 0 0 0 0 Past Encounters Encounter ID Performer Location Encounter Start Date Encounter Closed Date Diagnosis/Indication Diagnosis SNOMED-CT Code Diagnosis ICD10 Code Diagnosis IMO Codes Diagnosis Note [id number] Aquiles Stinson MD [facility] [address] [place] [address] 06/27/2023 10:52:29 07/15/2023 15:58:24 Spinal stenosis in cervical region 12937896 M48.02 68-year-ol d female with multiple levels of cervical spondylosi s (C4 to C7) and radiculopa thy. Diagnosis and treatment options were discussed. For her cervical spine she is completely miserable and has been in significan t pain for quite some time. Additional ly she has weakness. We discussed surgical interventi on which she elected for. After reviewing the patient's history, physical exam, and studies I have decided the patients chronic illness with progressio n warrants elective major surgery. The patient has completed greater than 6 weeks of physician directed nonoperati ve management of this condition to include medication s and physical therapy without improvemen t. I have further discussed the natural progressio n of this disease as well as the operative and non- operative modalities that are appropriat e for treating this disease. The known risks of surgery include infection, bleeding, damage to nerves and/or arteries, continued pain, loss of motion, spinal fluid leak, Dysphagia, dysphonia and the possible need for further surgeries. Risks of anesthesia such as nausea, vomiting, pneumonia, stroke, heart attack and . She will be scheduled for a C4 to 7 anterior cervical discectomy and fusion. She has been seen by ENT and evaluated who will assist in exposure.W earl consent was obtained. Radiculopa thy due to cervical spondylosis [id number] M47.22 Cervical d isc disorder with radiculopathy 310800851 M50.10 Pre-surger y evaluation 611447184 Z01.528 [id number] Aquiles Stinson MD [facility] [address] [place] [address] 07/22/2023 14:14:05 08/12/2023 10:46:56 Radiculopathy due to cervical spondylosis [id number] M47.22 68-year-ol d female status post 3 level anterior cervical discectomy and fusion. Incision is healing well. She will continue her collar. Vitamin D intake was encouraged . She will begin using her bone stimulator . I will refill the oxycodone for 2 more weeks. Follow-up in 4 weeks with radiograph s. [id number] Loree Alvares CNP [facility] [address] [place] [address] 08/23/2023 12:49:48 09/05/2023 16:03:54 Postoperative visit [id number] Z48.89 Cervical radiculopathy 17176892 M54.12 Cervical d isc disorder with radiculopathy 803747256 M50.10 [id number] JEIMY Coats [address] [place] [address] 10/04/2023 13:00:44 10/19/2023 13:54:25 Postoperative visit [id number] Z48.89 Cervical radiculopathy 42405194 M54.12 [id number] Loree Dia, CLEANER OPERATOR [facility] [address] [place] [address] 01/04/2024 09:10:09 01/27/2024 20:59:46 Postoperative visit [id number] Z48.89 Dysphasia 51835904 R47.0 2 [address]4790 dysphagia [id number] OSCAR HANSEN PA-C [facility] [address] [place] [address] 06/26/2024 10:40:48 07/05/2024 10:40:06 Low back pain 205202978 M54.50 [id number] Injury of lumbar spinal cord 618278967 S34.109A [id number] OSCAR HANSEN PA-C [facility] [address] [place] [address] 07/16/2024 14:54:01 07/23/2024 08:18:45 Lumbar radiculopathy 953198621 M54.16 [id number] OSCAR HANSEN PA-C [facility] [address] [place] [address] 09/13/2024 09:19:29 09/25/2024 10:06:41 Lumbar radiculopathy 678942436 M54.16 [id number] Louise Disla PA-C [facility] [address] [place] [address] 10/11/2024 09:01:56 10/23/2024 15:15:23 Pain in right thumb [id number] 021732 M79.644 [id number] Health Concerns Section Related Observation LastModified by Organization Detai ls LastModified Time None Recorded Concern Status LastModified by Organization Details LastModified Time None Recorded Advance Directives Directive None Recorded Payers Insurance Date Sequence Insurance Name Policy Number Policy Looney Covered Member ID Looney Member ID Guarantor Name 10/23/2024 2 [place] [id number] Dinah Luna [id number] Dinah Luna 10/10/2024 1 MEDICARE B-[place]: [facility] [employer] Dinah Luna [id number] 2 Dinah Luna 10/11/2024 [employer] - SPECIALITY CLAIMS (MEDICARE DME REGION A) Dinah Luna [id number] 2 Dinah Luna Notes Date Note Type Note Provider Name and Address Organization Details Recorded Time 01/04/2024 text/html I am seeing the patient today under the supervision of Dr. Stinson who was available but who did not see the patient. Surgery:anterior cervical discectomy and fusion C4-[id number] date: July 12, 2023.Surgeon:Dr. Stinson HPI:68-year-old woman presents today status post surgical intervention listed above. Overall doing well and has early resolution of pre-op neck and arm symptoms. Ordered physical therapy at last visit. Celebrex prn. still has not taken tizanidine, unsure why. Still having trouble swallowing large pieces of food, such as steak, and has to chew food for a long time to swallow. Denies trouble breathing or sensation of choking. Past family, medical, social history and review of symptoms have been reviewed, updated, and it is located in the patient's chart. MSK EXAM: examination of the cervical spineTransitions: Patient able to arise from a seated position without difficulty. No assistive device. Slightly kyphotic posture at neck. Inspection: surgical scar is healed well without evidence of infection. Cervical ROM WNL, with stiff endpoints. Bilateral upper extremities equal movement and strength 5/5. Positive sensation to touch. IMAGING:X-rays ordered, obtained, and independently reviewed at [facility] today. 2 view cervical spine reveals ACDF hardware in appropriate position without displacement or failure. Good fusion appearance. Clips from previous carotid surgery visible. IMPRESSION: 68-year-old female status post ACDF C4-C7 07/12/2023, recovering well PLAN:Findings and situation discussed with patient. She is very satisfied with her recovery and feels greatly improved. Will order swallow study to further evaluate. Explained to patient she was a 3-level fusion and could have caused irritation to esophagus. Also prescribed cyclobenzaprine for muscle spasms. Medication education reviewed. FOLLOW UP: 6 months Speech recognition operations forester software was used to create portions of this document. An attempt at proofreading has been made to minimize errors. Please call for corrections. Loree Alvares, CLEANER OPERATOR [address] [facility] [address], [place], [address], [place] - [facility] 01/04/2024 12:55:13 06/26/2024 text/html I am seeing the patient today under the supervision of Dr. Lazo who was available but who did not see the patient. HPI: Patient is a pleasant 69-year-old female who presents for evaluation of ongoing low back pain. Patient reports she had a fall last Tuesday06/20/2024. She states since this time she has had significant left-sided and central low back pain. She does endorse a history of sacroiliac joint issues in the past doing physical therapy as well as low back pain issues however this onset was acute in nature after her fall pain is about a 7 out of 10 radiates down to the left lateral thigh. Patient has been taking Celebrex and Tylenol which has not been significantly helpful for the pain at this time. TREATMENTS: As noted in HPI Past family, medical, social history and review of systems has been reviewed, updated and signed by me and is located in the patient s chart. Examination: The patient is well appearing, alert and oriented x3 and in no acute distress. Gait is antalgic. Patient is able to transition from seated to standing position with difficulty.Inspection of the spine reveals no step off, deformity or overlying skin changes or atrophy.The spine is tender along midline at the level of L4-L5 as well as left paravertebral musculature and posterior hip musculatureRange of motion of the Lumbar spine is 60% of normal.Range of motion of the hips and knees is full with discomfort noted on straight leg raise test on the left sideStrength in lower extremity myotomes 5/5 bilaterally.Sensation intact.Re e xes normal 2+at knee and ankle. No ankle clonus X-rays ordered, obtained and reviewed at [facility], 2 views of the lumbar spine shows degenerative disc disease question of L4 compression fracture with minimal loss of vertebral height. Impression/Plan: Low back pain status post fall versus L4 compression fracture at this time I would recommend moving forward with an MRI to further evaluate the low back for potential compression fracture and lumbar radiculopathy status post trauma. Patient was given a prescription for cyclobenzaprine 5 mg at bedtime as well as tramadol 50 mg as needed for severe pain. Patient will follow-up with myself in about 2 to 3 weeks for MRI review. [facility] speech recognition operations forester software was used to create portions of this document. An attempt at proofreading has been made to minimize errors. Please call for corrections. OSCAR HANSEN PA-C [address], [place], [address], [facility] - [facility] 06/26/2024 14:06:12 07/16/2024 text/html I am seeing the patient today under the supervision of Dr. George who was available but who did not see the patient. HPI: Patient is a pleasant 69-year-old female who presents for evaluation of ongoing low back pain. Patient reports she had a fall last Tuesday06/20/2024. She presents today in follow-up for MRI review. Patient states she is overall feeling somewhat better continues to have some low back pain without radicular symptoms. Denies any interval trauma. TREATMENTS: As noted in HPI Past family, medical, social history and review of systems has been reviewed, updated and signed by me and is located in the patient s chart. Examination: The patient is well appearing, alert and oriented x3 and in no acute distress. Gait is antalgic. Patient is able to transition from seated to standing position with difficulty.Inspection of the spine reveals no step off, deformity or overlying skin changes or atrophy.The spine is no longer tender along the paravertebral musculature and posterior hip musculature.Range of motion of the Lumbar spine is 60% of normal.Range of motion of the hips and knees is full without discomfort notedStrength in lower extremity myotomes 5/5 bilaterally.Sensation intact.Re e xes normal 2+at knee and ankle. No ankle clonus MRI of the lumbar spine dated 06/30/2024 independent reviewed in office today.minimal retrolisthesisof T12 on L1 and L1 on L2, and grade 1 anterolisthesis of L4 on L5 and L5 on S1 without spondylolysis. There is mild superior endplate concavity of L4 on the left associated with a Schmorl's node, with noassociated edema. Vertebral body heights are preserved. There is edema in the partially visualized leftsacrum, with probable nondisplaced T1/T2 hypointense curvilinear fracture line extending through the left sacrum, suggesting sacral insufficiency fracture. L1-L2: Minimal posterior disc osteophyte complex with left paracentral protrusion and mild facet spurring, with no significant central stenosis or neural foraminal narrowing.L2-L3: Broad-based disc osteophyte complex with right greater than left facet hypertrophy. No significant central stenosis. Minimal right and no left neural foraminal narrowing.L3-L4: Broad-based disc osteophyte complex with bilateral facethypertrophy. No nerve root compression. Otherwise no significant central stenosis. Mild tomoderate right and minimal left neural foraminal narrowing.L4-L5: Grade 1 anterolisthesis with uncovering of the disc and broad-based disc bulge as well as prominent bilateral facet hypertrophy. Moderate central stenosis. Mild bilateral neural foraminal narrowing.L5-S1: Mild broad-based disc bulge. Bilateral facet hypertrophy. No significant central stenosis. Minimal right and moderate left neural foraminal narrowing. Impression/Plan: Low back pain status post fall with potential sacral insufficiency fracture. As the patient is improving in pain over time I would recommend moving forward with physical therapy for lumbar and core stability with a follow-up scheduled in about 8 weeks to ensure things are continuing to get better. We discussed in regards to the potential sacral insufficiency fracture she is not having significant pain here I would recommend conservative management we will continue to follow as needed. Patient expressed understanding of the plan all her questions asked and answered. [employer] [facility] speech recognition operations forester software was used to create portions of this document. An attempt at proofreading has been made to minimize errors. Please call for corrections. OSCAR HANSEN PA-C [address] [place] [address] [address] [facility], [place], [address], [facility] - [facility] 07/16/2024 15:26:04 09/13/2024 text/html I am seeing the patient today under the supervision of Dr. George who was available but who did not see the patient. HPI: Patient is a pleasant 69-year-old female who presents for evaluation of ongoing low back pain and sacral insufficiency fracture. Patient was last seen by myself on 07/16/2024 status post a secondary acute fall. Patient was prescribed medication management and physical therapy as primarily her pain was along the region of the low back she denies any pain over the sacral regions. Patient states today she has been doing a lot better. Physical therapy has graduated her again. Patient states that her pain is about a 2 out of 10. Back to normal daily living activities. She has followed up with primary care due to osteoporotic type fracture pattern and concerns. TREATMENTS: As noted in HPI Past family, medical, social history and review of systems has been reviewed, updated and signed by me and is located in the patient s chart. Examination: The patient is well appearing, alert and oriented x3 and in no acute distress. Gait is antalgic. Patient is able to transition from seated to standing position with difficulty.Inspection of the spine reveals no step off, deformity or overlying skin changes or atrophy.The spine is no longer tender along the paravertebral musculature and posterior hip musculature.Range of motion of the Lumbar spine is 60% of normal.Range of motion of the hips and knees is full without discomfort notedStrength in lower extremity myotomes 5/5 bilaterally.Sensation intact.Re e xes normal 2+at knee and ankle. No ankle clonus MRI of the lumbar spine dated 06/30/2024 independent reviewed in office today.minimal retrolisthesisof T12 on L1 and L1 on L2, and grade 1 anterolisthesis of L4 on L5 and L5 on S1 without spondylolysis. There is mild superior endplate concavity of L4 on the left associated with a Schmorl's node, with noassociated edema. Vertebral body heights are preserved. There is edema in the partially visualized leftsacrum, with probable nondisplaced T1/T2 hypointense curvilinear fracture line extending through the left sacrum, suggesting sacral insufficiency fracture. L1-L2: Minimal posterior disc osteophyte complex with left paracentral protrusion and mild facet spurring, with no significant central stenosis or neural foraminal narrowing.L2-L3: Broad-based disc osteophyte complex with right greater than left facet hypertrophy. No significant central stenosis. Minimal right and no left neural foraminal narrowing.L3-L4: Broad-based disc osteophyte complex with bilateral facethypertrophy. No nerve root compression. Otherwise no significant central stenosis. Mild tomoderate right and minimal left neural foraminal narrowing.L4-L5: Grade 1 anterolisthesis with uncovering of the disc and broad-based disc bulge as well as prominent bilateral facet hypertrophy. Moderate central stenosis. Mild bilateral neural foraminal narrowing.L5-S1: Mild broad-based disc bulge. Bilateral facet hypertrophy. No significant central stenosis. Minimal right and moderate left neural foraminal narrowing. Impression/Plan: Low back pain status post fall with potential sacral insufficiency fracture. At this time as patient has overall had improvement in symptoms I would recommend continuing with conservative management doing home exercise programming. She can follow-up in our office on an as-needed basis all other questions asked and answered expressed with the patient I would highly recommend continuing to follow with primary care in regards to her overall bone health. [employer] speech recognition operations forester software was used to create portions of this document. An attempt at proofreading has been made to minimize errors. Please call for corrections. OSCAR HANSEN PA-C [address] [facility] [address], [place], [address], [facility] - [facility] 09/13/2024 10:20:54 10/11/2024 text/html I am seeing the patient today under the supervision of dr Aparicio who was available but who did not see the patient. DX: right Basilar joint osteoarthritis HPI: 69 yr old Female for consultation.She is Complaining of Right thumb pain. Has increasing pain with grasp and thompson pinch for the past several months. Anti-inflammatories ineffective. No splinting. No falls or trauma. Past family, medical, social history and review of systems has been reviewed, updated and is located in the patient s chart. Examination: Alert and oriented 3. No acute distress. Nonantalgic gait. right Thumb reveals no soft tissue swelling erythema ecchymosis. Tender over the TM joint. Positive first [facility] joint grind test. No tenderness of the first dorsal compartment. Negative Tinel sign over the distal radial sensory nerve. Neurovascular intact. No tenderness over the A1 ashutosh region. Inspection the left hand reveals no swelling, erythema, ecchymoses or deformity. Full movement of the forearm, wrist and digits. X-rays ordered, obtained and reviewed at [facility] views right TM joint reveals degenerative changes Impression/Plan:The findings and situation discussed with the patient. Recommended a cortisone injection to the TM joint. Under aseptic technique, 40 mg Kenalog 40 and 1 cc of 0.5% marcaine were injected into the right TM joint. The patient tolerated the procedure well. Postinjection precautions reviewed. The patient will follow up in 6 weeks if no improvement. Provided with the basilar joint handout. Louise Disla PA-C [address] [facility] [address], [place], [address], [facility] - [facility] 10/11/2024 10:26:17 OBGyn Episode No OBEpisode recorded.
[2025-01-03 07:25] VITALS: BP 120/82; PULSE 89; RESP 16; TEMP 36.6; O2SAT 100; BMI 19.8
== END 2025-01-03 07:38 | disposition home or self-care (01) ==
PROVIDERS: PCP Internal Medicine; Visit Provider Nurse Practitioner Family
DX: S40.862A Insect bite (nonvenomous) of left upper arm, initial encounter (principal); W57.XXXA Bitten or stung by nonvenomous insect and other nonvenomous arthropods, initial encounter

== ENCOUNTER → 2025-01-03 07:22 | Outpatient (BNVA) | payer MEDICARE, SELFPAY | PROVIDERS: PCP Internal Medicine; Visit Provider Nurse Practitioner Family | DX: S40.862A Insect bite (nonvenomous) of left upper arm, initial encounter (principal); W57.XXXA Bitten or stung by nonvenomous insect and other nonvenomous arthropods, initial encounter; Y93.9 Activity, unspecified; Y92.9 Unspecified place or not applicable; Y99.9 Unspecified external cause status | CPT/HCPCS: 99212 ==